=== PATIENT | female | born 1965 | race African-American/Black ===

== ENCOUNTER 2018-01-09 01:37 | Observation (INO) ==
[2018-01-09] MEDS ORDERED: SODIUM CHLORIDE 0.9% 1,000 ML IV STA (04:13)
[2018-01-09] MEDS ORDERED: ONDANSETRON 4 MG/2 ML VIAL IV STA (04:13)
[2018-01-09] MEDS ORDERED: MORPHINE 4 MG/1 ML VIAL IV STA (04:13)
[2018-01-09 04:47] LABS: Basophils % 0.4 % (0.0-0.8); Eosinophils # 0.1 10*3/uL (0.0-0.87); Eosinophils % 1.3 % (0.00-10.9); Hematocrit 39.8 VOL% (35.7-47.0); Hemoglobin 12.8 GM/DL (12.0-16.0); Immature Granulocytes % 0.3 %; Immature Granulocytes Absolute 0.03 #; Lymphocytes # 2.8 10*3/uL (1.4-4.0); Mean Corpuscular HGB Conc 32.2 GM/DL (32-36); Mean Corpuscular Hemoglobin 30 PG (27-34); Mean Platelet Volume 10.1 FL (9.6-12.0); Monocytes # 0.7 10*3/uL (0.11-0.8); Monocytes % 7.8 % (1.7-12.7); Neutrophils # 5.5 10*3/uL (1.4-7.4); Neutrophils % 60.2 % (38.7-73.9); Platelet Count 300 T/CUMM (130-400); Red Blood Count 4.28 MC/CUMM (3.8-5.5); Red Cell Distribution Width 14.1 % (9.3-17.3); White Blood Count 9.2 T/CUMM (4-12)
[2018-01-09 05:08] LABS: Alanine Aminotransferase 33 U/L (13-56); Albumin 3.5 G/DL (3.4-5.0); Alkaline Phosphatase 104 U/L (45-117); Aspartate Amino Transferase 21 U/L (0-37); Bilirubin,Total < 0.39 MG/DL (0.2-1.0); Blood Urea Nitrogen 9 MG/DL (7-18); Calcium 8.9 MG/DL (8.5-10.1); Glucose 206 MG/DL (74-106); Osmolality,Calculated 283.4 MOS/KG (273-304); Potassium 3.5 MMOL/L (3.5-5.1); Sodium 140 MMOL/L (136-145); Total Protein 7.5 G/DL (6.4-8.3)
[2018-01-09] MEDS ORDERED: MORPHINE 10 MG/1 ML VIAL ONE ×2 (05:11→17:31)
[2018-01-09 06:33] LABS: Apearance,Urine Slightly Hazy (Clear); Bacteria,Urine Moderate /HPF (Few); Bilirubin,Urine Negative (Negative); Blood, Urine Negative (Negative); Glucose,Urine (UA) >=500 mg/dL (Negative); Ketones,Urine Negative (Negative); Mucus,Urine Occasional /LPF (Occasional); Nitrite,Urine Negative (Negative); Protein,Urine Negative; RBC,Urine <1 /HPF (0-4); Squamous Epithelial Cell,Urine Moderate /HPF (0-10); Urine Color Yellow (Yellow); Urine Specific Gravity 1.035 (1.001-1.035); Urine Urobilinogen < 2.0 EU/DL (0.2-1.0); WBC,Urine <1 /HPF (0-6)
[2018-01-09] MEDS ORDERED: KETOROLAC 30 MG/1 ML VIAL ONE (08:45)
[2018-01-09] MEDS ORDERED: PANTOPRAZOLE 40 MG VIAL IV STA (08:45)
[2018-01-09] MEDS ORDERED: KETOROLAC 30 MG/1 ML VIAL IV STA (08:46)
[2018-01-09] MEDS ORDERED: FOLIC ACID 1 MG TABLET PO SCH ×2 (13:08→21:00)
[2018-01-09] MEDS ORDERED: DEXTROSE 50% 25 GM/50 ML VIAL IV PRN (13:08)
[2018-01-09] MEDS ORDERED: GLUCAGON 1 MG VIAL IM PRN (13:08)
[2018-01-09] MEDS ORDERED: ACETAMINOPHEN 325 MG TABLET PO PRN (13:08)
[2018-01-09] MEDS ORDERED: CETIRIZINE 10 MG TABLET PO SCH ×2 (13:08→21:00)
[2018-01-09] MEDS ORDERED: ONDANSETRON 4 MG/2 ML VIAL IV PRN ×2 (13:08→17:34)
[2018-01-09] MEDS ORDERED: ALBUTEROL/IPRATROPIUM 3 ML NEB RESP TX PRN (13:08)
[2018-01-09] MEDS ORDERED: BELIMUMAB IV SCH (13:08)
[2018-01-09] MEDS: LACTATED RINGERS 1,000 ML IV SCH ×3 (13:32→23:37)
[2018-01-09] MEDS: ASPIRIN EC 81 MG TABLET PO SCH (13:33)
[2018-01-09] MEDS: HYDROXYCHLOROQUINE 200 MG TABLET PO SCH ×2 (13:35→21:12)
[2018-01-09] MEDS: PANTOPRAZOLE 40 MG TABLET PO SCH (13:47)
[2018-01-09] MEDS: INSULIN LISPRO 100 UNIT/ML SUBCUT SCH ×4 (14:08→21:14)
[2018-01-09] MEDS: LOSARTAN 50 MG TABLET PO SCH (14:09)
[2018-01-09] MEDS ORDERED: LIDOCAINE 1%/EPI INJ 20 ML VIAL ONE (14:26)
[2018-01-09] MEDS: MORPHINE 4 MG/1 ML VIAL IV PRN ×2 (14:32→21:21)
[2018-01-09] MEDS: ALBUTEROL 2.5 MG/3 ML NEB RESP TX SCH ×2 (14:59→20:03)
[2018-01-09] MEDS ORDERED: GABAPENTIN 400 MG CAPSULE PO SCH (15:00)
[2018-01-09] MEDS ORDERED: cefOXitin 2,000 MG in SYRINGE 1 EACH IV ONE (15:00)
[2018-01-09] MEDS ORDERED: ALBUTEROL 2.5 MG/3 ML NEB RESP TX ONE (16:13)
[2018-01-09] MEDS ORDERED: ALBUTEROL/IPRATROPIUM 3 ML NEB RESP TX ONE ×2 (17:17→17:18)
[2018-01-09] MEDS ORDERED: ONDANSETRON 4 MG/2 ML VIAL ONE ×2 (17:31→18:49)
[2018-01-09] MEDS: MORPHINE 10 MG/1 ML VIAL IV PRN ×5 (17:35→17:55)
[2018-01-09] MEDS ORDERED: PROPOFOL 200 MG/20 ML VIAL IV ONE (18:48)
[2018-01-09] MEDS ORDERED: MIDAZOLAM 2 MG/2 ML VIAL ONE (18:49)
[2018-01-09] MEDS ORDERED: fentaNYL 100 MCG/2 ML VIAL ONE (18:49)
[2018-01-09] MEDS ORDERED: LIDOCAINE 1% 5 ML VIAL ONE (18:49)
[2018-01-09] MEDS ORDERED: GLYCOPYRROLATE 0.4 MG/2 ML VIAL ONE ×2 (18:49)
[2018-01-09] MEDS ORDERED: NEOSTIGMINE 10 MG/10 ML VIAL ONE (18:49)
[2018-01-09] MEDS ORDERED: ROCURONIUM 100 MG/10 ML VIAL IV ONE (18:49)
[2018-01-09] MEDS ORDERED: SEVOFLURANE 1 UNIT/15 MINUTE INH ONE (18:49)
[2018-01-09] MEDS: buPROPion XL 150 MG TABLET PO SCH (19:24)
[2018-01-09] MEDS ORDERED: ATORVASTATIN 10 MG TABLET PO SCH (21:00)
[2018-01-09] MEDS: DULoxetine 30 MG CAPSULE PO SCH (21:11)
[2018-01-09] MEDS: GABAPENTIN 400 MG CAPSULE PO SCH (21:12)
[2018-01-09] MEDS: INSULIN REGULAR 100 UNIT/ML SUBCUT SCH (21:31)
[2018-01-10] MEDS: ALBUTEROL 2.5 MG/3 ML NEB RESP TX SCH ×3 (00:20→12:17)
[2018-01-10] MEDS: MORPHINE 4 MG/1 ML VIAL IV PRN ×2 (01:06→11:16)
[2018-01-10] MEDS: LACTATED RINGERS 1,000 ML IV SCH ×2 (06:02→15:06)
[2018-01-10 07:43] LABS: Basophils % 0.2 % (0.0-0.8); Eosinophils # 0.1 10*3/uL (0.0-0.87); Eosinophils % 1.1 % (0.00-10.9); Hemoglobin 11.7 GM/DL (12.0-16.0); Immature Granulocytes % 0.3 %; Immature Granulocytes Absolute 0.03 #; Lymphocytes # 2.2 10*3/uL (1.4-4.0); Lymphocytes % 24.8 % (21.3-54.2); Mean Corpuscular HGB Conc 31.6 GM/DL (32-36); Mean Corpuscular Hemoglobin 30 PG (27-34); Mean Corpuscular Volume 94.1 FL (87-102); Mean Platelet Volume 10.7 FL (9.6-12.0); Monocytes # 0.7 10*3/uL (0.11-0.8); Monocytes % 7.2 % (1.7-12.7); Neutrophils % 66.4 % (38.7-73.9); Platelet Count 273 T/CUMM (130-400); Red Blood Count 3.93 MC/CUMM (3.8-5.5); Red Cell Distribution Width 14.3 % (9.3-17.3); White Blood Count 9.1 T/CUMM (4-12)
[2018-01-10 08:14] LABS: Albumin 2.8 G/DL (3.4-5.0); Bilirubin,Total 0.4 MG/DL (0.2-1.0); Calcium 8.7 MG/DL (8.5-10.1); Osmolality,Calculated 285.4 MOS/KG (273-304); Potassium 3.7 MMOL/L (3.5-5.1); Total Protein 6.7 G/DL (6.4-8.3)
[2018-01-10] MEDS: INSULIN REGULAR 100 UNIT/ML SUBCUT SCH ×2 (09:42→12:24)
[2018-01-10] MEDS: HYDROXYCHLOROQUINE 200 MG TABLET PO SCH (09:45)
[2018-01-10] MEDS: ASPIRIN EC 81 MG TABLET PO SCH (09:45)
[2018-01-10] MEDS: DULoxetine 30 MG CAPSULE PO SCH (09:45)
[2018-01-10] MEDS: PANTOPRAZOLE 40 MG TABLET PO SCH (09:46)
[2018-01-10] MEDS: buPROPion XL 150 MG TABLET PO SCH (09:46)
[2018-01-10] MEDS: LOSARTAN 50 MG TABLET PO SCH (09:51)
[2018-01-10] MEDS: GABAPENTIN 400 MG CAPSULE PO SCH ×2 (09:51→15:16)
[2018-01-10 16:02] VITALS: BP 106/63
[2018-01-14] MEDS ORDERED: METHOTREXATE 2.5 MG TABLET PO SCH ×2 (08:46→09:00)
[2018-01-14] MEDS ORDERED: ERGOCALCIFEROL 50,000 UNIT CAPSULE PO SCH (08:46)
== END 2018-01-10 17:35 | disposition home or self-care (01) ==
LOC: N.ED 01:37 → N.EDINP 01:37 → N.5E 09:34
PROVIDERS: ADMIT Surgery; ATTEND Surgery
PROC: LAPCHOL (2018-01-09 16:10)